=== PATIENT | female | born 1960 | race Caucasian/White ===

== ENCOUNTER 2023-06-04 12:36 | Outpatient (CLI) | payer MEDICARE, BC | END 2023-06-04 23:59 | disposition home or self-care (01) | LOC: RAD 12:36 | PROVIDERS: ATTEND Internal Medicine | DX: K57.32 Diverticulitis of large intestine without perforation or abscess without bleeding (principal); I70.8 Atherosclerosis of other arteries | CPT/HCPCS: 72192 ==